=== PATIENT | male | born 1970 | race Caucasian/White ===

== ENCOUNTER 2016-10-11 13:17 | Emergency (ER) | payer BC ==
[~2016-10-11] VITALS: Ht 172.7 cm; Wt 90.7 kg
[2016-10-11 13:54] VITALS: BP_SYST 143
--- NOTE | 2016-10-11 14:26 | NUR ---
Patient to ER bed 8 to gown for evaluation. Side rails up. Report given to Saurabh GÓMEZ.
--- NOTE | 2016-10-11 14:30 | NUR ---
Pt complains of epigastric pain since Tuesday. Pt also complains of dizziness, shakiness, palpitations. Pt states pain is 7/10. Pt denies fever and vomiting, no other injuries/complaints per pt and noted.
--- NOTE | 2016-10-11 14:34 | NUR ---
ER Dr. Rawls at bedside examining patient.
[2016-10-11] MEDS ORDERED: NACL 0.9% 1,000 ML IV ONE (14:36)
[2016-10-11] MEDS ORDERED: MAG HYDROX/AL HYDROX/SIMETH 30 ML, BELLADONNA ALKALOIDS/PHENOBARB 10 ML, LIDOCAINE VISC... PO ONE ×3 (14:45)
[2016-10-11] MEDS ORDERED: KETOROLAC TROMETHAMINE 30 MG VIAL IVP ONE (14:45)
[2016-10-11 14:55] LABS: BASOPHILS % (AUTO) 0.4 % (0.0-2.0); EOSINOPHILS # (AUTO) 0.1 K/uL (0.0-0.4); EOSINOPHILS % (AUTO) 1.4 % (0.0-4.0); HEMATOCRIT 48.1 % (36-54); HEMOGLOBIN 15.6 g/dL (14.0-18.0); LYMPHOCYTES # (AUTO) 1.5 K/uL (1.0-5.5); MEAN CORPUSCULAR HEMOGLOBIN 30 pg (27-31); MEAN CORPUSCULAR HGB CONC 33 % (32-36); MEAN CORPUSCULAR VOLUME 92 fL (79.0-98.0); MONOCYTES # (AUTO) 0.5 K/uL (0.0-1.0); MONOCYTES % (AUTO) 7.4 % (1.7-9.3); NEUTROPHILS # (AUTO) 4.2 K/uL (1.8-7.7); NEUTROPHILS % (AUTO) 67.8 % (40.0-70.0); PLATELET COUNT (AUTO) 230 K/uL (130-430); RED BLOOD CELL COUNT(AUTO) 5.25 MIL/uL (4.2-6.2); RED CELL DISTRIBUTION WIDTH 12.2 % (9.0-15.0); WHITE BLOOD COUNT (AUTO) 6.4 K/uL (4.8-10.8)
--- NOTE | 2016-10-11 15:01 | NUR ---
recieved report from RICO Wiley. Will continue care.
[2016-10-11 15:06] LABS: CALCIUM 9.1 mg/dL (8.4-11.0); CREATININE 1.06 mg/dL (0.55-1.30); POTASSIUM 3.7 mmol/L (3.5-5.1)
[2016-10-11 15:14] LABS: ALBUMIN 4.2 g/dL (3.4-4.8); TOTAL BILIRUBIN 1.3 mg/dL (0.0-1.0)
--- NOTE | 2016-10-11 15:28 | NUR ---
Patient reports pain 4/10 30 minutes after administration of Toradol. No adverse reactions noted. Will continue to monitor.
[2016-10-11 16:14] VITALS: BP_SYST 143
--- NOTE | 2016-10-11 16:14 | NUR ---
Patient given written and verbal discharge instructions and verbalizes understanding. ER MD discussed with patient the results and treatment provided. Patient in stable condition. ID arm band removed. IV catheter removed intact and dressing applied, no active bleeding. Rx of Tramadol given. Patient educated on pain management and to follow up with PMD this week. Pain Scale 0/10. Opportunity for questions provided and answered.
== END 2016-10-11 16:14 | disposition home or self-care (01) ==
LOC: SED 13:17
DX: R10.12 Left upper quadrant pain (principal); R42 Dizziness and giddiness
CPT/HCPCS: 36415; 80053; 83690; 85025; 85610; 85730; 96361; 96374; 99284; J1885; J2001; J7030

== ENCOUNTER 2019-01-20 16:15 | Emergency (ER) | payer BC ==
[~2019-01-20] VITALS: Ht 185.4 cm; Wt 90.7 kg
[2019-01-20 16:40] VITALS: BP_SYST 150
--- NOTE | 2019-01-20 18:36 | NUR ---
Patient to ER bed 4 to gown for evaluation. Side rails up. Assumed care from triage nurse RICO Reno.
--- NOTE | 2019-01-20 18:43 | NUR ---
Patient arrived via POV, AAOx4, and ambulatory with steady gait. Patient c/c of vomiting x 3 with blood streaks. Patient has history of peptic ulcer. Patient states he is currently feeling nauseated and weak. Patient states upper abdominal pain just above umbilicus as sharp non radiating. Patient rate pain at 7/10. Patient has not taken OTC meds, no ETOH, and no smoking. Patietn states no diarrhea, but dark tarry stool since yesterday. Patient states he is not aware of a fever, but has had chills intermittently.
--- NOTE | 2019-01-20 18:46 | NUR ---
MD performed rectal exam and GUIAC. Per MD, Guiac negative, and aware of results.
--- NOTE | 2019-01-20 18:46 | NUR ---
ER at bedside examining patient.
[2019-01-20] MEDS ORDERED: MAG HYDROX/AL HYDROX/SIMETH 30 ML, DICYCLOMINE HCL 20 MG, LIDOCAINE VISCOUS 2% 15ML (PO... PO ONE ×3 (19:00)
[2019-01-20 20:18] VITALS: BP_SYST 131
--- NOTE | 2019-01-20 20:18 | NUR ---
Patient given written and verbal discharge instructions and verbalizes understanding. ER MD COTE discussed with patient the results and treatment provided. Patient in stable condition. ID arm band removed. Rx of ZOFRAN MOTRIN given. Patient educated on pain management and to follow up with PMD. Pain Scale . Opportunity for questions provided and answered. Medication side effect fact sheet provided.
== END 2019-01-20 20:18 | disposition home or self-care (01) ==
LOC: SED 16:15
DX: R10.13 Epigastric pain (principal); R11.2 Nausea with vomiting, unspecified; K92.2 Gastrointestinal hemorrhage, unspecified
CPT/HCPCS: 99283